=== PATIENT | female | born 1985 | race African-American/Black ===

== ENCOUNTER 2018-05-18 12:34 | Emergency (ER) | payer OTHER ==
[~2018-05-18] VITALS: Ht 162.6 cm; Wt 116.1 kg
[2018-05-18 12:36] VITALS: BP 153/104; Ht 162.6 cm; Wt 116.1 kg
== END 2018-05-18 13:17 | disposition home or self-care (01) ==
LOC: ED 12:34
DX: B33.8 Other specified viral diseases (principal); J45.909 Unspecified asthma, uncomplicated; Z88.1 Allergy status to other antibiotic agents

== ENCOUNTER 2018-06-01 13:33 | Emergency (ER) | payer SELFPAY ==
[~2018-06-01] VITALS: Ht 162.6 cm; Wt 115.7 kg
[2018-06-01 13:36] VITALS: Ht 162.6 cm; Wt 115.7 kg
[2018-06-01 16:27] VITALS: BP 121/73
== END 2018-06-01 16:27 | disposition left against medical advice (07) ==
LOC: ED 13:33
DX: Z53.21 Procedure and treatment not carried out due to patient leaving prior to being seen by health care provider (principal)

== ENCOUNTER 2020-01-17 13:48 | Emergency (ER) | payer MEDICAID ==
[~2020-01-17] VITALS: Ht 162.6 cm; Wt 133.8 kg
[2020-01-17 13:51] VITALS: Ht 162.6 cm; Wt 133.8 kg
[2020-01-17 14:54] LABS: BASOPHIL % 0.7 % (0-2); PLATELET COUNT 222 x10^3mcL (130-400); RED CELL DISTRIBUTION WIDTH 13.6 % (11.5-14.5)
[2020-01-17 14:57] LABS: CALCIUM 8.7 mg/dL (8.5-10.1); CARBON DIOXIDE 32.1 mmol/L (21-32); CHLORIDE SERUM 106 mmol/L (98-107); CREATININE SERUM 0.6 mg/dL (0.6-1.0); GFR1 > 60 mL/min; GLUCOSE SERUM 91 mg/dL (74-106); SODIUM SERUM 142 mmol/L (136-145)
[2020-01-17 15:04] LABS: ALBUMIN 3.7 g/dL (3.4-5.0); ALKALINE PHOSPHATASE 54 U/L (46-116); ALT/SGPT 27 U/L (14-59); AST/SGOT 19 U/L (15-37); BILIRUBIN TOTAL 0.4 mg/dL (0.20-1.00); TOTAL PROTEIN, SERUM 7.7 g/dL (6.4-8.2)
[2020-01-17 15:11] LABS: FREE T4 1.12 ng/dL (0.76-1.46)
[2020-01-17 20:21] VITALS: BP 154/94
== END 2020-01-17 20:21 | disposition home or self-care (01) ==
LOC: ED 13:48
PROVIDERS: Emergency Medicine
DX: M54.6 Pain in thoracic spine (principal); R07.89 Other chest pain; R06.02 Shortness of breath; J45.909 Unspecified asthma, uncomplicated; R00.2 Palpitations; M79.661 Pain in right lower leg; Z88.1 Allergy status to other antibiotic agents; Z91.018 Allergy to other foods; Z90.49 Acquired absence of other specified parts of digestive tract
CPT/HCPCS: 36415; 84439; 85378